=== PATIENT | female | born 1965 | race American Indian/Alaskan Native ===

== ENCOUNTER 2017-08-16 10:59 | Emergency (ER) | payer MEDICAID, MEDICARE ==
--- NOTE | 2017-08-16 12:57 | Emergency Department Report ---
- General Chief Complaint: Upper Respiratory Infection Stated Complaint: COLD AND FEVER Time Seen by Provider: 08/16/17 12:21 Source: patient Mode of arrival: Ambulatory Limitations: No Limitations - History of Present Illness Initial Comments: 52-year-old female past medical history HIV on HAART medicines, follows up at [facility] and center presents with complaint of 3 days of persistent cough and chest congestion. Patient is awake alert and oriented 3 no drooling no trismus no audible wheezing or stridor. Patient is fully lucid. States she had some subjective fever but no chills. States she has slightly yellow mucus with cough. High CD4 count low viral load. MD Complaint: cough, sore throat, rhinorrhea Onset/Timin -: days(s) Severity: moderate Consistency: constant Improves With: nothing Worsens With: nothing Context: sick contacts Associated Symptoms: cough Treatments Prior to Arrival: none - Related Data Previous Rx's Medication Instructions Recorded Last Taken Type Albuterol Sulfate [Ventolin Hfa] 1 puff IH Q4H PRN #1 hfa.aer.ad 08/16/17 Unknown Rx Azithromycin [Zithromax Z-MAYELIN] 250 mg PO QDAY #6 tablet 08/16/17 Unknown Rx Ibuprofen [Motrin] 800 mg PO Q8HR PRN #20 tablet 08/16/17 Unknown Rx Phenylephrine/Dm/Acetaminop/GG 10 ml PO Q6H PRN #1 liquid 08/16/17 Unknown Rx [Mucinex Xzgl-Gmr-Okipysxwtb Lq] ED Review of Systems ROS: Stated complaint: COLD AND FEVER Other details as noted in HPI Constitutional: denies: chills, fever Eyes: denies: eye pain, eye discharge, vision change ENT: denies: ear pain, throat pain Respiratory: cough. denies: shortness of breath, wheezing Cardiovascular: denies: chest pain, palpitations Endocrine: no symptoms reported Gastrointestinal: denies: abdominal pain, nausea, diarrhea Genitourinary: denies: urgency, dysuria, discharge Musculoskeletal: denies: back pain, joint swelling, arthralgia Skin: denies: rash, lesions Neurological: denies: headache, weakness, paresthesias Psychiatric: denies: anxiety, depression Hematological/Lymphatic: denies: easy bleeding, easy bruising ED Past Medical Hx - Past Medical History Hx HIV: Yes - Social History Smoking Status: Never Smoker Substance Use Type: None - Medications Home Medications: Home Medications Medication Instructions Recorded Confirmed Last Taken Type Albuterol Sulfate [Ventolin Hfa] 1 puff IH Q4H PRN #1 hfa.aer.ad 08/16/17 Unknown Rx Azithromycin [Zithromax Z-MAYELIN] 250 mg PO QDAY #6 tablet 08/16/17 Unknown Rx Ibuprofen [Motrin] 800 mg PO Q8HR PRN #20 tablet 08/16/17 Unknown Rx Phenylephrine/Dm/Acetaminop/GG 10 ml PO Q6H PRN #1 liquid 08/16/17 Unknown Rx [Mucinex Bgbw-Pjj-Punwgcaopm Lq] ED Physical Exam - General Limitations: No Limitations General appearance: alert, in no apparent distress - Head Head exam: Present: atraumatic, normocephalic - Eye Eye exam: Present: normal appearance, PERRL, EOMI - ENT ENT exam: Present: mucous membranes moist - Neck Neck exam: Present: normal inspection - Respiratory Respiratory exam: Present: respiratory distress, wheezes (no audible wheezing auscultation bilaterally) - Cardiovascular Cardiovascular Exam: Present: regular rate, normal rhythm. Absent: systolic murmur, diastolic murmur, rubs, gallop - GI/Abdominal GI/Abdominal exam: Present: soft, normal bowel sounds - Extremities Exam Extremities exam: Present: normal inspection - Back Exam Back exam: Present: normal inspection - Neurological Exam Neurological exam: Present: alert, oriented X3 - Psychiatric Psychiatric exam: Present: normal affect, normal mood - Skin Skin exam: Present: warm, dry, intact, normal color. Absent: rash ED Course Vital Signs 08/16/17 11:13 Temperature 98.1 F Pulse Rate 89 Respiratory 16 Rate Blood Pressure 122/87 O2 Sat by Pulse 100 Oximetry ED Medical Decision Making - Medical Decision Making A/P: Upper Respiratory infection, 1-x-ray unremarkable. Case discussed with Dr. Mejia will give patient empiric treatment with azithromycin 2-albuterol, Mucinex 3-Motrin when necessary 4-follow-up with primary care doctor Critical care attestation.: If time is entered above; I have spent that time in minutes in the direct care of this critically ill patient, excluding procedure time. ED Disposition Clinical Impression: Upper respiratory infection Qualifiers: URI type: unspecified URI Qualified Code(s): J06.9 - Acute upper respiratory infection, unspecified Disposition: DC-01 TO HOME OR SELFCARE Is pt being admited?: No Does the pt Need Aspirin: No Condition: Stable Instructions: Upper Respiratory Infection (ED) Prescriptions: Albuterol Sulfate [Ventolin Hfa] 1 puff IH Q4H PRN #1 hfa.aer.ad PRN Reason: Cough Azithromycin [Zithromax Z-MAYELIN] 250 mg PO QDAY #6 tablet Ibuprofen [Motrin] 800 mg PO Q8HR PRN #20 tablet PRN Reason: Pain Phenylephrine/Dm/Acetaminop/GG [Mucinex Ljtr-Hca-Lrlcgcxvps Lq] 10 ml PO Q6H PRN #1 liquid PRN Reason: Cough Referrals: [facility] [Provider Group] - 3-5 Days [facility] [Outside] - 3-5 Days Forms: Work/School Release Form(ED) Time of Disposition: 14:13
--- NOTE | 2017-08-16 13:43 | XRay Report ---
ROUTINE CHEST, TWO VIEWS: HISTORY: Cough. The trachea, heart, mediastinal contour, lung lyons and bony thorax are unremarkable. IMPRESSION: Unremarkable chest x-ray.
[2017-08-16 14:15] VITALS: BP 118/75
== END 2017-08-16 14:21 | disposition home or self-care (01) ==
LOC: ED 10:59
DX: J06.9 Acute upper respiratory infection, unspecified (principal)
CPT/HCPCS: 71046

== ENCOUNTER 2021-10-24 15:25 | Emergency (ER) | payer MEDICARE ==
[2021-10-24 16:00] VITALS: BP 140/97
[2021-10-24 18:26] LABS: Bacteria,Urine 1+ /HPF (Negative); Bilirubin,Urine NEG (Negative); Blood,Urine LG (Negative); Color,Urine Yellow (Yellow); Mucus,Urine FEW /HPF; Protein,Urine <15 mg/dL mg/dL (Negative); Urobilinogen,Urine < 2.0 mg/dL (<2.0)
== END 2021-10-25 07:49 | disposition left against medical advice (07) ==
LOC: ED 15:25
DX: R10.9 Unspecified abdominal pain (principal); Z53.21 Procedure and treatment not carried out due to patient leaving prior to being seen by health care provider
CPT/HCPCS: 81001